=== PATIENT | female | born 1995 | race African-American/Black ===

== ENCOUNTER 2017-09-08 19:59 | Emergency (ER) | payer SELFPAY ==
[~2017-09-08] VITALS: Ht 162.6 cm; Wt 77.0 kg
[2017-09-08 20:02] VITALS: BP 105/53
== END 2017-09-08 21:35 | disposition left against medical advice (07) ==
LOC: ER 20:02
DX: R50.9 Fever, unspecified (principal); Z53.21 Procedure and treatment not carried out due to patient leaving prior to being seen by health care provider

== ENCOUNTER 2019-07-30 18:20 | Emergency (ER) | payer MEDICAID ==
[~2019-07-30] VITALS: Ht 162.6 cm; Wt 80.0 kg
[2019-07-30 19:00] VITALS: BP 110/62
== END 2019-07-30 20:59 | disposition left against medical advice (07) ==
LOC: ER 18:20
DX: Z53.21 Procedure and treatment not carried out due to patient leaving prior to being seen by health care provider (principal); J45.909 Unspecified asthma, uncomplicated; S60.453A Superficial foreign body of left middle finger, initial encounter; X58.XXXA Exposure to other specified factors, initial encounter; Y93.9 Activity, unspecified